=== PATIENT | male | born 1995 | race African-American/Black ===

== ENCOUNTER 2025-04-10 21:34 | Emergency (ER) | payer OTHER ==
[~2025-04-10] VITALS: Ht 175.3 cm; Wt 97.7 kg
[2025-04-11] MEDS: ONDANSETRON 4MG 2ML VIAL IV ONE (00:21)
[2025-04-11] MEDS: LIDOCAINE 5% PATCH TD ONE (00:21)
[2025-04-11] MEDS: KETOROLAC 30 MG/ML 1 ML VIAL IV ONE (00:23)
[2025-04-11 00:25] LABS: BASO # 0.0 10^3/uL (0.0-0.2); BASO % 0.3 % (0.0-1.0); EOS # 0.0 10^3/uL (0.0-0.5); EOS % 0.4 % (0.0-3.0); LYMPH # 1.1 10^3/uL (1.5-5.0); LYMPH % 12.6 % (24.0-44.0); MONO # 0.6 10^3/uL (0.0-0.8); MONO % 6.8 % (2.0-8.0); NEUTROPHILS # 7.1 10^3/uL (1.5-8.5); NEUTROPHILS % 79.2 % (36.0-66.0); PLATELET COUNT, AUTOMATED 185 10^3/uL (150-450)
[2025-04-11 00:47] LABS: ALT/SGPT 17 U/L (7.0-40); AST/SGOT 33 U/L (<34); CALCIUM LEVEL 9.8 MG/DL (8.5-10.1); CARBON DIOXIDE LEVEL 30 MMOL/L (20-31); CHLORIDE LEVEL 102 MMOL/L (98-107); CREATININE FOR GFR 1.13 MG/DL (0.70-1.30); GLOMERULAR FILTRATION RATE > 90.0 (>60); POTASSIUM SERUM 4.3 MMOL/L (3.5-5.1); SODIUM LEVEL 141 MMOL/L (136-145)
[2025-04-11 01:40] VITALS: BP 140/78; TEMP 98.2; O2SAT 99
== END 2025-04-11 01:40 | disposition home or self-care (01) ==
LOC: M ED 21:34
DX: G44.201 Tension-type headache, unspecified, intractable (principal); Z88.0 Allergy status to penicillin
CPT/HCPCS: 80048; 80076; 83690; 85025; 96374; 96375; 99284; J1885; J2405

== ENCOUNTER 2025-04-21 11:09 | Emergency (ER) | payer OTHER ==
[~2025-04-21] VITALS: Ht 175.3 cm; Wt 99.7 kg
[2025-04-21] MEDS ORDERED: LEXA1TAB2 PO (11:38)
[2025-04-21] MEDS ORDERED: TRET0.046 (11:38)
[2025-04-21] MEDS: KETOROLAC 30 MG/ML 1 ML VIAL IV ONE (13:38)
[2025-04-21] MEDS: ACETAMINOPHEN 500 MG TAB PO ONE (13:38)
[2025-04-21] MEDS: LIDOCAINE 5% PATCH TD ONE (13:38)
[2025-04-21] MEDS: ONDANSETRON 4MG 2ML VIAL IV ONE (13:45)
[2025-04-21 14:29] VITALS: BP 139/73; TEMP 98.5; O2SAT 99
[2025-04-21] MEDS ORDERED: TIZA4CAP PO (15:29)
[2025-04-21] MEDS ORDERED: KETO-204 PO (15:29)
[2025-04-21] MEDS ORDERED: LIDO1ADH93 TOP (15:29)
== END 2025-04-21 15:45 | disposition home or self-care (01) ==
LOC: M ED 11:09
DX: R51.9 Headache, unspecified (principal); M48.02 Spinal stenosis, cervical region; Z88.0 Allergy status to penicillin
CPT/HCPCS: 70450; 72125; 96374; 96375; 99284; J1885; J2405

== ENCOUNTER 2025-05-06 20:56 | Emergency (ER) | payer OTHER ==
[~2025-05-06] VITALS: Ht 175.3 cm; Wt 100.4 kg
[~2025-05-06 20:56] MED LIST: KETO-204 PO; LEXA1TAB2 PO; LIDO1ADH93 TOP; TIZA4CAP PO; TRET0.046
[2025-05-06] MEDS ORDERED: PROP20TA72 PO (21:06)
[2025-05-06] MEDS: ACETAMINOPHEN 325 MG TAB PO ONE (23:35)
[2025-05-06] MEDS: KETOROLAC 30 MG/ML 1 ML VIAL IM ONE (23:36)
[2025-05-07 00:29] VITALS: BP 133/83; TEMP 97.6; O2SAT 100
== END 2025-05-07 00:30 | disposition home or self-care (01) ==
LOC: M ED 20:56
DX: G44.221 Chronic tension-type headache, intractable (principal); Z79.899 Other long term (current) drug therapy; Z88.0 Allergy status to penicillin
CPT/HCPCS: 96372; 99283; J1885